=== PATIENT | female | born 1955 | race Caucasian/White ===

== ENCOUNTER 2023-01-22 13:09 | Emergency (ER) | payer MEDICARE, OTHER ==
[2023-01-22 13:26] VITALS: O2SAT 99
[2023-01-22 13:41] LABS: BILIRUBIN,URINE NEGATIVE (NEGATIVE); GLUCOSE, URINE (UA) NEGATIVE (NEGATIVE); KETONES,URINE (UA) NEGATIVE (NEGATIVE); LEUKOCYTE ESTERASE, URINE SMALL (NEGATIVE); NITRITE,URINE NEGATIVE (NEGATIVE); OCCULT BLOOD,URINE TRACE-INTA (NEGATIVE); PROTEIN,URINE NEGATIVE (NEGATIVE); UROBILINOGEN,URINE 0.2 (NORMAL) E.U./dL (NORMAL)
--- NOTE | 2023-01-22 13:54 | ED Physician Documentation ---
History of Present Illness - Stated complaint Stated Complaint: - Chief complaint Chief Complaint: UTI - History obtained from History obtained from: Patient - Additonal information Additional information: 67-year-old woman with frequent UTIs. Has been doing somewhat better since September when she started vitamin C. In the middle of November she had a bladder infection and was treated with Macrobid. A couple of days later they called her and switched her over to 5 days of cefdinir. She was on that with improvement in her symptoms which were urgency and taking long time to urinate. There is no flank pain or fever. Subsequently about a week after being off the antibiotic she developed symptoms again and was treated again with cefdinir. Both times the culture came out positive for Klebsiella. She has been off of antibiotics for a little over a week now and as of last evening started develop cloudy urine and her typical UTI symptoms, again without flank pain or fever again. She has been thoroughly worked up for frequent UTIs and has both a urologist and a urogynecologist. She has a history of hydronephrosis on the left, but she has no flank pain now. Otherwise no clear cause of frequent bladder infections has been identified. PD PAST MEDICAL HISTORY - Past Medical History Past Medical History: Yes Cardiovascular: Hypertension, High cholesterol : Frequency, Other - Past Surgical History Past Surgical History: No - Present Medications Home Medications: Ambulatory Orders Medication Instructions Recorded Confirmed Cefdinir 300 mg PO BID #28 cap 01/22/23 - Allergies Allergies/Adverse Reactions: Allergies Allergy/AdvReac Type Severity Reaction Status Date / Time Opioids - Morphine Analogues AdvReac Nausea Verified 01/22/23 13:22 - Social History Does the pt smoke?: No Smoking Status: Never smoker PD ED PE NORMAL - Vitals Vital signs reviewed: Yes - General General: Alert and oriented X 3, No acute distress - Abdomen Abdomen: Normal bowel sounds, Soft, Non tender - Back Back: No CVA TTP - Neuro Neuro: Alert and oriented X 3, Normal speech Results - Vitals Vitals: Vital Signs - 24 hr 01/22/23 13:18 Temperature 36.6 C Heart Rate 55 L Respiratory 16 Rate Blood Pressure 137/64 H O2 Saturation 99 Oxygen O2 Source Room air - Labs Labs: Laboratory Tests 01/22/23 13:35 Urine Color LIGHT YELLOW Urine Clarity HAZY Urine pH 6.0 Ur Specific [place] <=1.005 Urine Protein NEGATIVE Urine Glucose (UA) NEGATIVE Urine Ketones NEGATIVE Urine Occult Blood TRACE-INTA Urine Nitrite NEGATIVE Urine Bilirubin NEGATIVE Urine Urobilinogen 0.2 (NORMAL) Ur Leukocyte Esterase SMALL H Urine RBC 0-5 Urine WBC >25 H Urine WBC Clumps PRESENT Ur Squamous Epith Cells RARE Squamous Urine Bacteria Few Ur Microscopic Review INDICATED Urine Culture Comments INDICATED PD Medical Decision Making - ED course ED course: Seems reasonable to treat her with a longer course given prior treatment failures pending the culture. No signs or symptoms consistent with pyelonephritis or sepsis. Departure - Departure Disposition: 01 Home, Self Care Clinical Impression: Cystitis Condition: Good Record reviewed to determine appropriate education?: Yes Instructions: ED UTI Cystitis Female Prescriptions: Cefdinir 300 mg PO BID #28 cap Comments: I sent your prescription electronically to the [facility] in [place]. We will culture your urine, the results should be done in 48-72 hours. If an antibiotic change is necessary we will call you. Return if worse in the meantime, especially if you develop increasing flank pain, fevers, or cannot keep down the medication.
[2023-01-22 14:04] LABS: CLARITY,URINE HAZY (CLEAR)
[2023-01-22 14:05] LABS: BACTERIA,URINE Few /HPF (None Seen); RBC,URINE 0-5 /HPF (0-5); SQUAMOUS EPITHELIAL CELL,UR RARE Squamous (<= Few); WBC CLUMPS,URINE PRESENT; WBC,URINE >25 /HPF (0-5)
[2023-01-22 14:42] VITALS: BP 132/61
== END 2023-01-22 14:22 | disposition home or self-care (01) ==
LOC: ED 13:09
DX: N30.90 Cystitis, unspecified without hematuria (principal); B96.20 Unspecified Escherichia coli [E. coli] as the cause of diseases classified elsewhere; I10 Essential (primary) hypertension; E78.00 Pure hypercholesterolemia, unspecified; Z87.440 Personal history of urinary (tract) infections
CPT/HCPCS: 81001; 81003; 87086; 99283